=== PATIENT | female | born 1980 | race Caucasian/White ===

== ENCOUNTER → 2017-01-25 | Outpatient (CLI) | payer BC ==
[~2017-01-25] MED LIST: DESO1TAB14 PO; DULO60CA25 PO
--- NOTE | 2017-01-25 16:33 | DI ---
Indication: ITS.REASON: R13.10 DYSPHAGIA; R22.1 NECK SWELLING PROCEDURE: US THYROID: Encounter: Initial Comparison: None Technique: Grayscale and color Doppler sonographic imaging of the thyroid gland was performed. Findings: Right thyroid lobe is homogeneous without focal nodule or mass. Left lobe also appears sonographically normal. Thyroid isthmus is normal measuring 0.3 cm in diameter. Normal Doppler flow to both thyroid lobes. Right lobe measures 3.1 x 1.8 x 1.7 cm. Left lobe measures 4.5 x 1.5 x 1.5 cm. Impression: Normal exam .
== END ==
LOC: IMA 15:51
PROVIDERS: ATTEND Physician Assistant
DX: R22.1 Localized swelling, mass and lump, neck (principal); R13.10 Dysphagia, unspecified

== ENCOUNTER → 2017-03-05 | Outpatient (CLI) | payer OTHER ==
[2017-03-05 17:28] LABS: BASOPHILS % (AUTO) 0.2 % (0-2); EOSINOPHILS # (AUTO) 0.2 T/MM3 (0-0.5); EOSINOPHILS % (AUTO) 1.8 % (0-4); HCT - HEMATOCRIT 41.7 % (36-46); HGB - HEMOGLOBIN 14.1 GM/DL (12-16); IMMATURE GRANULOCYTE # (AUTO) 0.02 T/MM3 (0.00-0.03); IMMATURE GRANULOCYTE % (AUTO) 0.2 % (0.0-0.5); LYMPHOCYTES # (AUTO) 4.3 T/MM3 (1-4.8); LYMPHOCYTES % (AUTO) 45.3 % (23-45); MEAN CORPUSCULAR HGB 30.7 UUG (26-34); MEAN CORPUSCULAR HGB CONC(MCHC 33.8 GM/DL (31-37); MEAN CORPUSCULAR VOLUME 90.7 UM3 (80-100); MEAN PLATELET VOLUME 8.9 UM3 (9.4-12.4); MONOCYTES # (AUTO) 0.6 T/MM3 (0-0.8); MONOCYTES % (AUTO) 6.6 % (0-9.0); NEUTROPHILS #(AUTO)-ABSOLUTE 4.3 T/MM3 (1.8-7.7); NEUTROPHILS % (AUTO) 45.9 % (33-66); WBC - WHITE BLOOD COUNT 9.5 T/MM3 (4.5-11.0)
[2017-03-05 17:40] LABS: ALBUMIN 4.2 G/DL (3.5-5.0); ALBUMIN/GLOBULIN RATIO 1.3 RATIO (1.1-2.2); ALKALINE PHOSPHATASE 78 U/L (38-126); ALT (SGPT) 59 U/L (9-52); ANION GAP 14 MEQ/L (5-15); AST (SGOT) 31 U/L (14-36); BUN/CREATININE RATIO 11 RATIO (6-26); C-REACTIVE PROTEIN 7.3 MG/L (0-9); CALCIUM 9.3 MG/DL (8.4-10.2); CHLORIDE 105 MEQ/L (98-107); CO2 - CARBON DIOXIDE 27 MEQ/L (22-30); CREATININE 0.8 MG/DL (0.7-1.2); GLOMERULAR FILTRATION RATE 80; GLUCOSE 91 MG/DL (65-110); POTASSIUM 3.9 MEQ/L (3.6-5); SODIUM 146 MEQ/L (134-144); TOTAL PROTEIN 7.4 G/DL (6.3-8.2)
== END ==
LOC: LAB 17:09
PROVIDERS: ATTEND Internal Medicine Rheumatology
DX: L40.8 Other psoriasis (principal); L40.59 Other psoriatic arthropathy; M35.00 Sjogren syndrome, unspecified
CPT/HCPCS: 36415; 80053; 85025; 85652; 86140